=== PATIENT | female | born 1960 | race Caucasian/White ===

== ENCOUNTER 2017-07-06 10:25 | Emergency (ER) | payer OTHER ==
[2017-07-06] MEDS ORDERED: Naproxen 550 mg Tab PO STA (12:01)
[2017-07-06] MEDS ORDERED: Tmp-Smz 800 mg-160 mg DS Tab PO STA (12:02)
--- NOTE | 2017-07-06 12:04 | C.PDOC ---
History Of Present Illness 56-year-old female, presents to the emergency department with complaints of cyst to left breast for the past year that has become progressively painful over the past week, associated with chills. Patient denies fevers, nausea/ vomiting, or any other associated symptoms. No other complaints at this time. Time Seen by Provider: 07/06/17 11:34 Chief Complaint (Nursing): Abnormal Skin Integrity History Per: Patient History/Exam Limitations: no limitations Past Medical History Reviewed: Historical Data, Nursing Documentation, Vital Signs Vital Signs: Last Vital Signs Temp 98.0 F 07/06/17 12:11 Pulse 75 07/06/17 12:11 Resp 16 07/06/17 12:11 BP 126/81 07/06/17 12:11 Pulse Ox 95 07/06/17 12:11 - Medical History PMH: HTN, Hypercholesterolemia Family History: States: No Known Family Hx - Social History Hx Tobacco Use: No Hx Alcohol Use: No Hx Substance Use: No - Immunization History Hx Tetanus Toxoid Vaccination: No Hx Influenza Vaccination: Yes Hx Pneumococcal Vaccination: Yes Review Of Systems Constitutional: Positive for: Chills. Negative for: Fever Cardiovascular: Positive for: Other (L breast pain) Respiratory: Negative for: Shortness of Breath Gastrointestinal: Negative for: Vomiting Musculoskeletal: Negative for: Back Pain Skin: Negative for: Rash Neurological: Negative for: Weakness, Numbness Physical Exam - Physical Exam Appears: Non-toxic, No Acute Distress Skin: Normal Color, Warm, Dry, No Rash Nose: Normal Oral Mucosa: Moist Lips: Normal Appearing Neck: Normal ROM Chest: Symmetrical, Other (L medial breast: 3-4cm area of induration and erythema. No fluctuance.) Extremity: Normal ROM ED Course And Treatment O2 Sat by Pulse Oximetry: 97 (RA) Pulse Ox Interpretation: Normal Progress Note: Patient treated with naproxen, Keflex and Bactrim. On reassessment Patient is resting comfortably, and is in no acute distress. Patient was instructed to follow up with clinic in 1-2 days for further evaluation. Disposition Counseled Patient/Family Regarding: Diagnosis, Need For Followup, Rx Given - Disposition Referrals: Ada Ramirez MD [Staff Provider] - [facility] [Outside] Disposition: HOME/ ROUTINE Disposition Time: 12:15 Condition: STABLE Additional Instructions: FOLLOW UP WITH GENERAL SURGEON WITHIN 1 WEEK APPLY WARM COMPRESSES TO AREA USE MEDICATIONS DIRECTED RETURN TO ER IF SYMPTOMS WORSEN Prescriptions: Cephalexin [Keflex] 500 mg PO BID #14 capsule Naproxen 375 mg PO BID PRN #20 tablet PRN Reason: pain Sulfamethoxazole/Trimethoprim [Bactrim DS 800 mg-160 mg] 1 tab PO BID #14 tab Instructions: Skin Abscess Forms: [employer] (Irish) Print Language: BULGARIAN - POA Present On Arrival: None - Clinical Impression Clinical Impression: Left breast abscess - Scribe Statement Mignon Paige All medical record entries made by the Scribe were at my direction and personally dictated by me. I have reviewed the chart and agree that the record accurately reflects my personal performance of the history, physical exam, medical decision making, and the department course for this patient. I have also personally directed, reviewed, and agree with the discharge instructions and disposition.
[2017-07-06] MEDS ORDERED: Tmp-Smz 800 mg-160 mg DS Tab ONE (12:09)
[2017-07-06] MEDS ORDERED: Naproxen 550 mg Tab PO ONE (12:09)
[2017-07-06 12:11] VITALS: BP 126/81; PULSE 75; RESP 16; TEMP 98
[2017-07-06 16:45] VITALS: O2SAT 97
== END 2017-07-06 12:12 | disposition home or self-care (01) ==
LOC: C.ER 10:25
DX: N61.1 Abscess of the breast and nipple (principal)